=== PATIENT | male | born 1990 | race Caucasian/White ===

== ENCOUNTER → 2016-07-18 | Outpatient (CLI) | payer OTHER ==
[2016-07-18 18:09] LABS: BASO % 0.3 %; BASO ABS # 0.02 K/uL (0-0.2); COMPLETE YES; EOS % 0.8 %; HEMATOCRIT 48.3 % (42-52); IG% 0.2 %; LYMPH % 31.7 %; LYMPH ABS # 1.87 K/uL (1.2-3.4); MEAN CELL VOLUME 88.5 fL (80-100); MEAN PLATELET VOLUME 10.6 fL (7.4-10.4); MONO % 10.5 %; NEUT % 56.5 %; PLATELET COUNT 205 K/uL (130-400); RED BLOOD COUNT 5.46 M/uL (4.7-6.1)
[2016-07-18 18:13] LABS: CALCIUM 9.1 mg/dl (8.5-10.1)
[2016-07-18 18:18] LABS: ALT/SGPT 18 U/L (12-78); BLOOD UREA NITROGEN 12 mg/dl (7-18); BUN/CREATININE RATIO 13.8 (10-20); CARBON DIOXIDE 32 mmol/L (21-32); CHLORIDE 101 mmol/L (98-107); CREATININE 0.88 mg/dl (0.60-1.40); GLUCOSE 69 mg/dl (70-99); SODIUM 139 mmol/L (136-145)
[2016-07-18 18:29] LABS: ALKALINE PHOSPHATASE 78 U/L (45-117); AST/SGOT 17 U/L (15-37); RHEUMATOID FACTOR < 10.0 U/mL (0-15)
[2016-07-18 19:24] LABS: LYME DISEASE AB IGG NEG (NEG)
[2016-07-18 19:26] LABS: LYME DISEASE AB IGM NEG (NEG)
== END | disposition home or self-care (01) ==
LOC: C.LABMFLN 14:59
PROVIDERS: ATTEND Family Medicine
DX: M79.1 Myalgia (principal); M25.50 Pain in unspecified joint

== ENCOUNTER → 2017-05-04 | Outpatient (CLI) | payer OTHER | END | disposition home or self-care (01) | LOC: C.LABMFLN 08:51 | PROVIDERS: ATTEND Family Medicine | DX: R35.0 Frequency of micturition (principal); N40.0 Benign prostatic hyperplasia without lower urinary tract symptoms; M46.1 Sacroiliitis, not elsewhere classified ==